=== PATIENT | male | born 1975 | race African-American/Black ===

== ENCOUNTER 2018-09-20 12:12 | Emergency (ER) | payer OTHER ==
[2018-09-20 12:23] VITALS: BP 144/87; PULSE 98; TEMP 98.3; BMI 27.3
[2018-09-20] MEDS ORDERED: INDOMETHACIN 50 MG CAPSULE PO ONE (13:36)
--- NOTE | 2018-09-20 13:58 | PDOC ---
History of Present Illness - General Chief Complaint: Pain Stated Complaint: FOOT PAIN Time Seen by Provider: 09/20/18 13:21 History Source: Patient Exam Limitations: No Limitations Past History - Past Medical History Allergies/Adverse Reactions: Allergies Allergy/AdvReac Type Severity Reaction Status Date / Time No Known Allergies Allergy Verified 09/20/18 12:20 Home Medications: Ambulatory Orders Indomethacin 50 mg PO TID #15 capsule 09/20/18 COPD: No - Immunization History Immunization Up to Date: Yes - Suicide/Smoking/Psychosocial Hx Smoking History: Never smoked Hx Alcohol Use: No Drug/Substance Use Hx: No *Physical Exam - Vital Signs Last Vital Signs Temp Pulse Resp BP Pulse Ox 98.3 F 98 H 16 144/87 97 09/20/18 12:20 09/20/18 12:20 09/20/18 12:20 09/20/18 12:20 09/20/18 12:20 - Physical Exam General Appearance: No: Apparent Distress Musculoskeletal: positive: Other (+Swelling and TTP along L 1st MTP joint, no erythema, minimal warmth no site) Integumentary: negative: Erythema Neurologic: positive: Alert, Normal Mood/Affect Moderate Sedation - Procedure Monitoring Vital Signs: Procedure Monitoring Vital Signs Temperature 98.3 F 09/20/18 12:20 Pulse Rate 98 H 09/20/18 12:20 Respiratory Rate 16 09/20/18 12:20 Blood Pressure 144/87 09/20/18 12:20 O2 Sat by Pulse Oximetry (%) 97 09/20/18 12:20 Medical Decision Making - Medical Decision Making 43 y/o M with no sig pmh presents with L toe pain from 3 days ago. Initially, swelling resolved with epsom salts. However, yesterday, noticed pain and swelling of L toe. Denies trauma to toe. Denies fever. Denies taking any medications currently; denies recent alcohol, meat/seafood consumption. Appears as gout - will tx with NSAIDs 09/20/18 13:59 *DC/Admit/Observation/Transfer Diagnosis at time of Disposition: Gout Qualifiers: Gout site: toe Gout etiology: unspecified cause Chronicity: acute Laterality: left Qualified Code(s): M10.9 - Gout, unspecified - Discharge Dispostion Disposition: HOME Condition at time of disposition: Good Decision to Admit order: No - Prescriptions Prescriptions: Indomethacin 50 mg PO TID #15 capsule - Referrals - Patient Instructions Printed Discharge Instructions: DI for Gout Additional Instructions: Thank you for choosing [facility]. It was a pleasure taking care of you. It is likely you have gout flare Take the prescribed medication for next 5 days Follow-up with your doctor in 2-3 days. Return to the Emergency Department if your symptoms worsen or persist or other concerning symptoms. - Post Discharge Activity
== END 2018-09-20 14:01 | disposition home or self-care (01) ==
LOC: JERFT 12:12
DX: M10.9 Gout, unspecified (principal)
CPT/HCPCS: 99281-25